=== PATIENT | male | born 1955 | race Caucasian/White ===

== ENCOUNTER 2020-06-24 06:07 | Inpatient (IN) | payer OTHER, MEDICARE ==
[2020-06-24] VITALS (14 sets, daily range): BP systolic 83–204; BP diastolic 49–109
[~2020-06-24] VITALS: Ht 182.9 cm; Wt 81.6 kg
[2020-06-24 06:42] LABS: HEMATOCRIT 32.5 % (42.0-52.0); HEMOGLOBIN 11.8 gm/dL (14.0-18.0); MCH 31.3 pg (26.0-34.0); MCHC 36.2 g/dL (28.0-37.0); MCV 86.5 fL (80.0-100.0); MPV 8.4 fl. (7.2-11.1); RBC 3.76 mil/uL (4.50-6.00); RDW-CV 13.5 % (10.5-14.5); WBC 23.7 thou/uL (4.0-11.0)
[2020-06-24 06:53] LABS: APTT 28.2 Seconds (25.0-31.3); PROTIME 10.6 Seconds (9.20-11.50)
[2020-06-24] MEDS ORDERED: XARELTO15 MG PO (06:53)
[2020-06-24] MEDS ORDERED: DILTIAZEM ER180 M2 PO (06:53)
[2020-06-24 07:32] LABS: CALCIUM 7.8 mg/dL (8.5-10.1); CREATININE 1.2 mg/dL (0.6-1.3); POTASSIUM 4.3 mmol/L (3.5-5.1)
[2020-06-24 07:36] LABS: ALBUMIN 3.4 g/dL (3.4-5.0); TOTAL BILIRUBIN 1.1 mg/dL (<0.1-1.0); TOTAL PROTEIN 7.2 g/dL (6.4-8.2)
[2020-06-24 07:59] LABS: BE -1.4 mmol/L (-2 to +3); PCO2 25.4 mmHg (35.0-45.0); pH 7.519 (7.340-7.450)
[2020-06-24 08:01] LABS: PO2 441.3 mmHg (75.0-100.0)
[2020-06-24] MEDS ORDERED: PERCOCET PO (09:03)
[2020-06-24 09:30] LABS: CALCIUM 8.1 mg/dL (8.5-10.1); CREATININE 0.8 mg/dL (0.6-1.3); POTASSIUM 4.2 mmol/L (3.5-5.1)
[2020-06-24 10:34] LABS: URINE BILIRUBIN NEGATIVE (Negative); URINE BLOOD 1+ (Negative); URINE CLARITY CLEAR; URINE COLOR YELLOW; URINE GLUCOSE-RANDOM TRACE (Negative); URINE KETONES 1+ (Negative); URINE LEUKOCYTES NEGATIVE (Negative); URINE NITRITE NEGATIVE (Negative); URINE PROTEIN NEGATIVE (Negative); URINE UROBILINOGEN 0.2 E.U./dl (0.2-1.0)
[2020-06-25] VITALS (52 sets, daily range): BP systolic 78–132; BP diastolic 49–91
[2020-06-25 03:12] LABS: HEMATOCRIT 29.5 % (42.0-52.0); HEMOGLOBIN 10.7 gm/dL (14.0-18.0); MCH 31.9 pg (26.0-34.0); MCHC 36.3 g/dL (28.0-37.0); MPV 9.2 fl. (7.2-11.1); RBC 3.36 mil/uL (4.50-6.00); RDW-CV 13.7 % (10.5-14.5)
[2020-06-25 03:22] LABS: ALBUMIN 2.7 g/dL (3.4-5.0); CREATININE 1.1 mg/dL (0.6-1.3); MAGNESIUM 2.1 mg/dL (1.8-2.4); POTASSIUM 3.7 mmol/L (3.5-5.1); TOTAL BILIRUBIN 0.8 mg/dL (<0.1-1.0); TOTAL PROTEIN 5.7 g/dL (6.4-8.2)
[2020-06-25 03:34] LABS: CHOLESTEROL 140 mg/dL (<200); HDL CHOLESTEROL 47 mg/dL (>40); LDL CHOLESTEROL 74 mg/dL (<100); TRIGLYCERIDE 97 mg/dL (<150); VLDL 19 mg/dL (<40)
[2020-06-25 03:36] LABS: SERUM ASSESSMENT Clear
[2020-06-25 05:46] LABS: BE 0.1 mmol/L (-2 to +3); PCO2 29.2 mmHg (35.0-45.0); pH 7.506 (7.340-7.450)
[2020-06-25 05:52] LABS: PO2 152.1 mmHg (75.0-100.0)
[2020-06-25 11:33] LABS: PCO2 27.2 mmHg (35.0-45.0); pH 7.503 (7.340-7.450)
[2020-06-25 11:35] LABS: PO2 131.2 mmHg (75.0-100.0)
--- NOTE | 2020-06-25 13:59 | EKG ---
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
[2020-06-25 17:45] LABS: GLUCOSE 137 mg/dL (70-99); SODIUM 126 mmol/L (136-145)
[2020-06-26] VITALS (21 sets, daily range): BP systolic 90–134; BP diastolic 51–76
[2020-06-26 05:06] LABS: GLYCOHEMOGLOBIN (HGB A1C) 5.4 % (4.8-5.6)
[2020-06-26 05:10] LABS: HEMATOCRIT 26.9 % (42.0-52.0); HEMOGLOBIN 10.1 gm/dL (14.0-18.0); MCH 31.6 pg (26.0-34.0); MCHC 37.5 g/dL (28.0-37.0); MCV 84.4 fL (80.0-100.0); MPV 7.3 fl. (7.2-11.1); RBC 3.18 mil/uL (4.50-6.00); RDW-CV 13.9 % (10.5-14.5); WBC 7.5 thou/uL (4.0-11.0)
[2020-06-26 06:00] LABS: ALBUMIN 2.4 g/dL (3.4-5.0); CALCIUM 7.4 mg/dL (8.5-10.1); CREATININE 0.8 mg/dL (0.6-1.3); MAGNESIUM 1.7 mg/dL (1.8-2.4); TOTAL BILIRUBIN 0.9 mg/dL (<0.1-1.0); TOTAL PROTEIN 5.9 g/dL (6.4-8.2)
--- NOTE | 2020-06-26 15:46 | 2DMMODE ---
[place] [address] 2 D/M-MODE ECHOCARDIOGRAM Name: MEET CABA Room: [address] IN .R.#: [id number] Admission: 06/24/20 Attend Phys: Patti Hadley, Discharge: Date of : 55 Date of Service: 06/26/20 1253 Report #: [id number] THIS REPORT FOR: cc: Clayton Lan,Clayton Lopez,Dc Gamboa MD [facility] ~ APPROVED REPORT Study performed: 06/26/2020 09:43:28 EXAM: Comprehensive 2D, Doppler, and color-flow Echocardiogram Patient Location: In-Patient Room #: 003 Status: routine BSA: 2.04 HR: 72 bpm BP: 90/51 mmHg Rhythm: Atrial Fibrillation Other Information Study Quality: Good Indications CVA/TIA Echo Enhancing Agent Indication: Rule out Shunt Agent(s) / Amount(s) Used: Agitated Saline 10 cc 2D Dimensions IVSd: 12.97 (7-11mm) LVOT Diam: 23.34 (18-24mm) LVDd: 41.23 mm PWd: 11.19 (7-11mm) Ascending Ao: 32.28 (22-36mm) LVDs: 23.73 (25-40mm) Aortic Root: 33.48 mm Volumes Left Atrial Volume (Systole) LA ESV Index: 31.40 mL/m2 Aortic Valve AoV Peak Efren.: 1.31 m/s AO Peak Gr.: 6.91 mmHg LVOT Max P.14 mmHg AO Mean Gr.: 3.70 mmHg LVOT Mean P.62 [place] [address] 2 D/M-MODE ECHOCARDIOGRAM Name: MEET CABA Faith Room: [address] IN .R.#: [id number] Admission: 06/24/20 Attend Phys: Patti Hadley, Discharge: Date of : 55 Date of Service: 06/26/20 1253 Report #: [id number] LVOT Max V: 1.24 m/s AO V2 VTI: 21.88 cm LVOT Mean V: 0.72 m/s OH (VTI): 4.07 cm2 LVOT V1 VTI: 20.82 cm Mitral Valve MV Decel. Time: 198.60 ms MV PHT: 57.59 ms MVA (PHT): 3.82 cm2 TDI Medial E' Efren.: 0.12 m/s Lateral E' Efren.: 0.18 m/s Pulmonary Valve PV Peak Efren.: 0.90 m/s PV Peak Gr.: 3.21 mmHg Tricuspid Valve RAP Estimate: 5.00 mmHg TR Peak Gr.: 18.40 mmHg RVSP: 23.00 mmHg PA Pressure: 23.00 mmHg Left Ventricle The left ventricle is normal size. There is normal LV segmental wall motion. Mild concentric left ventricular hypertrophy. Left ventricular systolic function is normal. The left ventricular ejection fraction is within the normal range. LVEF is 60-65%. This study is not technically sufficient to allow evaluation of the LV diastolic function due to atrial fibrillation. Right Ventricle The right ventricle is normal size. The right ventricular systolic function is normal. Atria The left atrium size is normal. The interatrial septum is intact with no evidence for an atrial septal defect. The right atrium size is normal. Aortic Valve Mild aortic valve sclerosis. No aortic regurgitation is present. There is no aortic valvular stenosis. Mitral Valve The mitral valve is normal in structure. Trace mitral regurgitation. No evidence of mitral valve [place] [address] 2 D/M-MODE ECHOCARDIOGRAM Name: MEET CABA Room: [address]#: [id number] Admission: 06/24/20 Attend Phys: Patti Hadley, Discharge: Date of : 55 Date of Service: 06/26/20 1253 Report #: [id number] Tricuspid Valve The tricuspid valve is normal in structure. Trace tricuspid regurgitation. No pulmonary hypertension. Pulmonic Valve The pulmonary valve is normal in structure. There is no pulmonic valvular regurgitation. Great Vessels The aortic root is normal in size. IVC is normal in size and collapses >50% with inspiration. Pericardium There is no pericardial effusion. <Conclusion> The left ventricle is normal size. Mild concentric left ventricular hypertrophy. Left ventricular systolic function is normal. The left ventricular ejection fraction is within the normal range. LVEF is 60-65%. This study is not technically sufficient to allow evaluation of the LV diastolic function due to atrial fibrillation. The right ventricle is normal size. The left atrium size is normal. Mild aortic valve sclerosis. No aortic regurgitation is present. There is no aortic valvular stenosis. The mitral valve is normal in structure. Trace mitral regurgitation. The tricuspid valve is normal in structure. IVC is normal in size and collapses >50% with inspiration. There is no pericardial effusion. There is normal LV segmental wall motion. The interatrial septum is intact with no evidence for an atrial septal defect. <ELECTRONICALLY SIGNED> By: Dc Mccollum MD, FACC 06/26/20 1253 1253 1253 Dc Mccollum MD, FACC /INF
[2020-06-27] VITALS (36 sets, daily range): BP systolic 78–139; BP diastolic 48–80
[2020-06-27 04:08] LABS: ABSOLUTE EOSINOPHILS 0.1 thou/uL (0.0-0.7); ABSOLUTE LYMPHOCYTES 0.7 thou/uL (0.8-5.3); ABSOLUTE MONOCYTES 0.8 thou/uL (0.0-1.2); ABSOLUTE NEUTROPHILS 5.1 thou/uL (1.6-8.1); BASOPHILS 0.1 %; EOSINOPHILS 1.2 %; HEMATOCRIT 27.6 % (42.0-52.0); HEMOGLOBIN 10.1 gm/dL (14.0-18.0); LYMPHOCYTES 10.9 %; MCH 31.9 pg (26.0-34.0); MCHC 36.8 g/dL (28.0-37.0); MCV 86.7 fL (80.0-100.0); MONOCYTES 11.6 %; MPV 7.5 fl. (7.2-11.1); NUCLEATED RBCS 0 /100WBC; PLATELET COUNT* 196 thou/uL (150-400); POLYS 76.2 %; RBC 3.18 mil/uL (4.50-6.00); RDW-CV 13.7 % (10.5-14.5); WBC 6.7 thou/uL (4.0-11.0)
[2020-06-27 04:34] LABS: ALBUMIN 2.5 g/dL (3.4-5.0); CALCIUM 7.5 mg/dL (8.5-10.1); CREATININE 0.9 mg/dL (0.6-1.3); MAGNESIUM 1.8 mg/dL (1.8-2.4); POTASSIUM 3.1 mmol/L (3.5-5.1); TOTAL BILIRUBIN 0.7 mg/dL (<0.1-1.0)
[2020-06-28] VITALS: BP 121/69
[2020-06-28 01:41] LABS: HEMATOCRIT 28.2 % (42.0-52.0); HEMOGLOBIN 10.2 gm/dL (14.0-18.0); MCH 31.4 pg (26.0-34.0); MCHC 36.3 g/dL (28.0-37.0); MCV 86.6 fL (80.0-100.0); MPV 7.6 fl. (7.2-11.1); RBC 3.26 mil/uL (4.50-6.00); RDW-CV 13.9 % (10.5-14.5); WBC 6.8 thou/uL (4.0-11.0)
[2020-06-28 01:43] LABS: CREATININE 0.8 mg/dL (0.6-1.3); MAGNESIUM 1.7 mg/dL (1.8-2.4)
[2020-06-28 01:44] LABS: POTASSIUM 4.2 mmol/L (3.5-5.1)
[2020-06-28 04:00] VITALS: BP 121/67
[2020-06-28 08:00] VITALS: BP 118/66
--- NOTE | 2020-06-28 12:08 | EEG ---
[facility] [address] [place] [address] EEG STUDY REPORT Name: MEET CABA Room: [address] IN M.R.#: [id number] Admission: 06/24/20 Attend Phys: Patti Hadley MD Discharge: Date of : 55 Report #: [id number] THIS REPORT FOR: //name// CC: Clayton Hadley DATE OF SERVICE: 06/24/2020 This patient is being evaluated for the possibility of seizure. EEG was done by placing the electrode by standard 10-20 system of electrode placement. Both referential and sequential montages were used for recording. Background activity in this patient's EEG is difficult to determine as it is a low voltage. It appeared to be about 7-8 Hz and 10-15 microvolt. The frequency may be overestimated because lot of artifact is present. EEG continued to be seen and monotonous throughout the record. Photic stimulation is unremarkable. IMPRESSION: This patient's EEG is low voltage and is intermixed with slowing on both sides. That is a nonspecific finding, which can occur with dementia, encephalopathy, effect of psychotropic medication, etc. No active seizure activity was noticed. Clinical correlation is recommended. Thank you very much for this referral. <ELECTRONICALLY SIGNED> By: Jorden Ortiz MD 06/28/20 1208 1526 1531Pchristian Ortiz MD /darshan
--- NOTE | 2020-06-28 12:08 | EEG ---
[address] [address] EEG STUDY REPORT Name: MEET CABA Room: [address] IN M.R.#: [id number] Admission: 06/24/20 Attend Phys: Patti Hadley MD Discharge: Date of : 55 Report #: [id number] THIS REPORT FOR: //name// CC: Clayton Hadley The patient is being evaluated for the possibility of seizure. EEG was done by placing the electrode by standard 10-20 system of electrode placement. Both referential and sequential montages were used for recording. Background activity in this patient's EEG is about 9 Hz and 30 microvolts. It is a symmetrical activity. The patient goes to sleep that is associated with bilateral slowing and vertex sharp waves. Photic stimulation is unremarkable. Throughout the record, no active epileptiform activity was noticed. IMPRESSION: This patient's EEG is within normal limits. Thank you very much for this referral. <ELECTRONICALLY SIGNED> By: Jorden Ortiz MD 06/28/20 1208 1652 1838Jorden Ortiz MD /nt
[2020-06-28 12:39] VITALS: BP 124/66
--- NOTE | 2020-06-28 15:21 | EKG ---
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1955 Requested By: Meng Pressley Order Number: [id number] Deny MD: Dc Mccollum Measurements Intervals [place] Rate: 133 P: [place]: QRS: -5 QRSD: 89 T: 52 QT: 316 QTc: 471 Interpretive Statements Atrial fibrillation with rapid V-rate Low voltage, extremity leads Minimal ST depression Baseline wander in lead(s) I,III,aVL Compared to ECG 06/24/2020 06:42:18 Low QRS voltage now present ST (T wave) deviation now present Heart rate has increased Electronically Signed On 06-28-2020 15:21:01 CDT by Dc Mccollum [email or web address] <ELECTRONICALLY SIGNED> By: Dc Mccollum MD, [facility] 06/28/20 1521 99 99 Dc Mccollum MD, [facility] /EPI
[2020-06-28 17:31] VITALS: BP 111/62
[2020-06-28 20:00] VITALS: BP 117/71
[2020-06-29] VITALS: BP 118/60
[2020-06-29 03:46] VITALS: BP 120/77
[2020-06-29 05:32] LABS: HEMATOCRIT 33.5 % (42.0-52.0); MCH 31.5 pg (26.0-34.0); MCHC 35.8 g/dL (28.0-37.0); MPV 7.2 fl. (7.2-11.1); RBC 3.8 mil/uL (4.50-6.00); RDW-CV 13.8 % (10.5-14.5); WBC 9.9 thou/uL (4.0-11.0)
[2020-06-29 06:18] LABS: CALCIUM 8.4 mg/dL (8.5-10.1); MAGNESIUM 1.8 mg/dL (1.8-2.4); POTASSIUM 4.1 mmol/L (3.5-5.1); TOTAL BILIRUBIN 0.9 mg/dL (<0.1-1.0); TOTAL PROTEIN 6.9 g/dL (6.4-8.2)
[2020-06-29 08:00] VITALS: BP 113/77
[2020-06-29] MEDS ORDERED: DILTIAZEM ER60 M1 PO (11:33)
[2020-06-29 12:14] VITALS: BP 113/77
== END 2020-06-29 13:00 | disposition home or self-care (01) | DRG 208 ==
LOC: M.ERS 06:07 → M.TBA-ER 07:09 → M.ICU 07:09 → M.2W 06-27 14:25
PROVIDERS: Family Medicine; Internal Medicine Critical Care Medicine; Internal Medicine Nephrology; Pediatrics; Personal Emergency Response Attendant; ADMIT Internal Medicine; ATTEND Internal Medicine
DX: J69.0 Pneumonitis due to inhalation of food and vomit (principal); J96.01 Acute respiratory failure with hypoxia; R65.11 Systemic inflammatory response syndrome (SIRS) of non-infectious origin with acute organ dysfunction; I63.9 Cerebral infarction, unspecified; E87.1 Hypo-osmolality and hyponatremia; I48.20 Chronic atrial fibrillation, unspecified; D68.59 Other primary thrombophilia; F11.20 Opioid dependence, uncomplicated; J98.11 Atelectasis; Z20.828 Contact with and (suspected) exposure to other viral communicable diseases; I10 Essential (primary) hypertension; Z96.651 Presence of right artificial knee joint; E86.0 Dehydration; R56.9 Unspecified convulsions; R33.9 Retention of urine, unspecified; E86.1 Hypovolemia; T50.905A Adverse effect of unspecified drugs, medicaments and biological substances, initial encounter; Y92.89 Other specified places as the place of occurrence of the external cause; Z88.2 Allergy status to sulfonamides; Z79.82 Long term (current) use of aspirin; Z79.899 Other long term (current) drug therapy; Z79.01 Long term (current) use of anticoagulants